=== PATIENT | male | born 1985 | race Caucasian/White ===

== ENCOUNTER 2022-03-06 08:32 | Outpatient (CLI) | payer MEDICAID ==
[~2022-03-06] VITALS: Ht 185.4 cm; Wt 102.1 kg
[2022-03-06] MEDS ORDERED: albuterol 2.5 MG/3 ML nebule NEB ONE (09:00)
== END 2022-03-06 23:59 | disposition home or self-care (01) ==
LOC: RT 08:32
PROVIDERS: ATTEND Nurse Practitioner Family
DX: Z01.818 Encounter for other preprocedural examination (principal); R94.2 Abnormal results of pulmonary function studies; R06.02 Shortness of breath; R05.3 Chronic cough; R07.89 Other chest pain; Z87.891 Personal history of nicotine dependence
CPT/HCPCS: 94060; 94760

== ENCOUNTER 2024-05-19 15:52 | Outpatient (CLI) | payer MEDICAID ==
[~2024-05-19] VITALS: Ht 185.4 cm; Wt 102.1 kg
[2024-05-19] MEDS: albuterol 2.5 MG/3 ML nebule NEB ONE (16:23)
[2024-05-19 16:27] VITALS: PULSE 106; RESP 16; O2SAT 98
[2024-05-19 16:40] VITALS: PULSE 116; RESP 14
== END 2024-05-19 23:59 | disposition home or self-care (01) ==
LOC: RT 15:52
PROVIDERS: ATTEND Family Medicine
DX: R94.2 Abnormal results of pulmonary function studies (principal); R05.3 Chronic cough
CPT/HCPCS: 94060; 94760

== ENCOUNTER 2024-07-08 06:21 | Outpatient (CLI) | payer MEDICAID ==
[2024-07-08] MEDS ORDERED: LIDOcaine 1% 30ml preserv. free vial ONE (06:41)
[2024-07-08] MEDS ORDERED: LIDOcaine 1%/PF 5ML 10 MG/ML VIAL ONE (06:41)
[2024-07-08] MEDS ORDERED: iohexol 300 MG/1 ML 50ml polymer ONE (06:41)
[2024-07-08] MEDS ORDERED: GADOTERATE MEGLUMINE 7.5 MMOL/15 ML VIAL IV ONE (06:42)
--- NOTE | 2024-07-08 11:00 | RADIOLOGY REPORT ---
C-ARM FLUOROSCOPY: PROCEDURE: Right shoulder FLUOROSCOPY TIME: 0.1 minute DAP: 1 mgy FINDINGS: Spot intraoperative C arm radiographs demonstrating right shoulder injection for MRI arthrogram. IMPRESSION: Please refer to surgical report for detailed findings.
--- NOTE | 2024-07-08 15:52 | RADIOLOGY REPORT ---
Procedure: MR MRI UPPER EXTREMITY RIGHT 07/08/2024 07:43 AM INDICATION: PAIN IN RIGHT SHOULDER COMPARISON: None TECHNIQUE: Multiplanar, multisequence MRI of the right shoulder was performed after intra-articular a dministration of diluted contrast. FINDINGS: Supraspinatus: Normal in morphology and signal. Infraspinatus: Normal in morphology and signal. Subscapularis: Normal in morphology and signal. Teres minor: Normal in morphology and signal. Biceps tendon: Long head biceps tendon is normal in morphology and signal. Short head biceps tendon is intact. Subacromial bursa: Mild fluid distention. Subcoracoid bursa: Mild fluid distention. Acromioclavicular joint: Mild degenerative hypertrophy. Type II acromion. Glenohumeral joint: Unremarkable. Glenoid labrum: A tear is seen in the anterior- superior labrum at approximately 1-2 o'clock positio n. Bones: No suspicious lesion is identified. Other: Proximal middle glenohumeral ligament thickening and signal alteration noted compatible sprai n/partial tear. IMPRESSION: 1. Anterior -superior labral tear approximately 1-2 o'clock. 2. Partial tear/ sprain of the proximal MGHL. 3. No rotator cuff tear.
== END 2024-07-08 23:59 | disposition home or self-care (01) ==
LOC: RAD 06:21
PROVIDERS: ATTEND Pediatrics Sports Medicine
DX: M25.511 Pain in right shoulder (principal); M47.816 Spondylosis without myelopathy or radiculopathy, lumbar region; S43.431A Superior glenoid labrum lesion of right shoulder, initial encounter; S43.491A Other sprain of right shoulder joint, initial encounter; X58.XXXA Exposure to other specified factors, initial encounter; Y93.89 Activity, other specified; Y92.89 Other specified places as the place of occurrence of the external cause; Y99.8 Other external cause status
CPT/HCPCS: 23350; 73222; 77002; A9575; J2003; J3490; Q9967